=== PATIENT | female | born 1975 | race Caucasian/White ===

== ENCOUNTER → 2022-12-24 13:33 | Outpatient (BNVA) | payer SELFPAY | PROVIDERS: Visit Provider Nurse Practitioner | DX: R69 Illness, unspecified (principal); J01.90 Acute sinusitis, unspecified | CPT/HCPCS: 87400; 87426 ==

== ENCOUNTER 2024-01-25 21:23 | Emergency (ER) | payer SELFPAY ==
[2024-01-25 21:26] VITALS: BP 145/69; PULSE 82; RESP 16; TEMP 36.6; O2SAT 99
--- NOTE | 2024-01-25 21:33 | XRR_ITS ---
PROCEDURE INFORMATION: Exam: XR Lumbosacral Spine Exam date and time: 01/25/2024 9:53 PM Age: 48 years old Clinical indication: Low back pain; Patient HX: Patient says she was driving yesterday and her back hurt some. Then tonight she sneezed and now has pain to the left of l4/l5 TECHNIQUE: Imaging protocol: Radiologic exam of the lumbosacral spine. Views: 2 or 3 views. COMPARISON: No relevant prior studies available. FINDINGS: Bones/joints: Normal. No acute fracture. Normal alignment. Soft tissues: Unremarkable. XR/XR lumbar spine 2-3V* [id number] IMPRESSION: No acute findings.
--- NOTE | 2024-01-25 21:34 | W.ED.BACK ---
Documented by User: [email or web address] Gutierrez 01/25/24 22:31 HPI - Back Pain/Injury General: Chief Complaint: Back Pain/Injury Stated Complaint: Lower back pain Time Seen by Provider: 01/25/24 21:29 Source: patient Mode of arrival: ambulatory Limitations: no limitations History of Present Illness: Patient is a 48-year-old female with no past medical history who reports to the emergency department due to low back pain tonight. Patient states she was at work when she violently sneezed, causing sudden onset of the low back pain. She states the pain is worse to her left paralumbar muscles, but she also has pain on the right. She notes a history of sciatica, however denies any prior back surgeries or traumatic injuries. She denies any bowel or bladder incontinence, saddle anesthesia, distal neurovascular complaints, or any other symptoms at this time. She notes using heating pads, but has gotten minimal relief. Pain has been constant and sharp since the sneeze, but does not radiate. The pain is worse when she stands and is ambulating, and is relieved when she sits down. MD elicited complaint: back pain Onset (ago): hour(s) Timing: constant Severity: severe Similar Symptoms Previously: No Quality: sharp Location: right lower back and left lower back Radiation: none Exacerbating factors: movement and walking Relieving factors: sitting upright Context: other (Sneezed) Associated symptoms: Reports no associated symptoms; Deny abdominal pain, chills, fever(s), nausea or vomiting Treatments prior to arrival: heat therapy Review of Systems General: Reports: 10 or more systems reviewed and unremarkable except in HPI and below Const: Denies: fever(s) or chills Eyes: Denies: change in vision or blurry vision Card: Denies: chest pain, palpitations or lightheadedness Resp: Denies: dyspnea, productive cough or wheezing GI: Reports: other (No bowel incontinence); Denies: abdominal pain, nausea, vomiting or diarrhea : Denies: flank pain or urinary incontinence Musc: Reports: back pain; Denies: neck pain, extremity pain, extremity swelling, joint pain or joint swelling Neuro: Reports: other (No saddle anesthesia); Denies: headache(s), numbness in extremities, weakness in extremities, sensory changes or dizziness Physical Exam Const: COMMON NORMALS: average body habitus, patient oriented x3, no limitations, healthy appearing, alert and well nourished GENERAL APPEARANCE: cooperative and in distress (From pain) ORIENTATION/CONSCIOUSNESS: Yes awake HENMT: COMMON NORMALS: normocephalic, atraumatic, external ears normal and Normal external nose present HEAD & SCALP: normal to inspection, normocephalic and atraumatic FACE & SINUS: normal facial exam NOSE: Normal external nose present EXTERNAL EAR: Yes external ears normal Eye: COMMON NORMALS: EOMs intact bilaterally and conjunctivae normal CONJUNCTIVA: Yes conjunctivae normal Neck/C-Spine: COMMON NORMALS: full ROM Resp: COMMON NORMALS: normal respiratory effort, No retractions, No use of accessory muscles and clear to auscultation bilaterally AUSCULTATION: clear to auscultation bilaterally Cardio: COMMON NORMALS: regular rate, regular rhythm, S1 normal heart sound present and S2 normal heart sound present RATE: regular rate RHYTHM: regular rhythm HEART SOUNDS: S1 normal heart sound present and S2 normal heart sound present : COMMON NORMALS: Yes no CVA tenderness BLADDER/KIDNEY EXAM: Yes no CVA tenderness Back/Pelvis: COMMON NORMALS: no CVA tenderness and thoracic and lumbar spine normal to inspection THORACIC SPINE/UPPER BACK: Yes normal to inspection, Yes ROM limited, Yes pain with ROM, No thoracic spinal tenderness and No paraspinal muscle tenderness LUMBAR SPINE/LOWER BACK: Yes ROM limited, Yes pain with ROM, No lumbar spinal tenderness, Yes paraspinal muscle tenderness Lumbar paraspinal muscle tenderness: bilateral (Left worse than right) and No mass present Extremity: COMMON NORMALS: normal to inspection and full ROM Neuro: COMMON NORMALS: patient oriented x3, moves all extremities, no focal motor deficits, no sensory deficits noted and deep tendon reflexes 2+ bilaterally SENSORIUM/ORIENTATION: Yes alert GAIT: Yes Antalgic gait present MOTOR EXAM: 5/5 motor strength present throughout Psych: COMMON NORMALS: mental status grossly normal Skin: COMMON NORMALS: no rashes or lesions noted and no wounds GENERAL SKIN EXAM: no rashes or lesions noted Course Vital Signs: Vital signs: Vital Signs Temperature 97.9 F 01/25/24 21:26 Pulse Rate 69 01/25/24 22:42 Respiratory Rate 18 01/25/24 22:42 Blood Pressure 102/67 01/25/24 22:42 Pulse Oximetry 98 01/25/24 22:42 Oxygen Delivery Me thod Room Air 01/25/24 21:26 MDM - Back Pain/Injury Medical Decision Making This patient was seen and evaluated in the emergency department due to acute onset of low back pain following a forceful sneeze. Patient has no prior surgical history to her back, though notes a history of sciatica. On arrival patient's vitals normal. Exam remarkable for severe limitation of range of motion at the lumbar spine, due to pain. No red flag symptoms of the back, and deep tendon reflexes intact. X-ray of the lumbar back showed no acute findings. After IM injections of Toradol, Norflex, and Decadron, patient is rechecked and states she feels better. I offered her a note for work, however she states she thinks that she can return as normal. I will give her prescriptions for steroid, muscle relaxer, and pain to take as needed. Also instructed her to follow-up with her primary care provider for any further evaluation. Precautions given, specifically red flag symptoms such as bowel or bladder incontinence or saddle anesthesia. Patient agrees with this plan. Labs Radiology Impressions Lumbar Spine X-Ray 01/25/24 21:33 IMPRESSION: No acute findings. All radiology interpretation(s) finalized by discharge Discharge Plan Discharge Patient Disposition: Home Clinical Impression: Strain of lumbar region Qualifiers: Encounter type: initial encounter Qualified Code(s): S39.012A - Strain of muscle, fascia and tendon of lower back, initial encounter Condition: Stable Prescriptions: New cyclobenzaprine 10 mg tablet 10 mg PO TID Qty: 30 0RF prednisone 20 mg tablet 60 mg PO ONCE 5 Days Qty: 15 0RF ketorolac 10 mg tablet 10 mg PO Q8H PRN (Reason: pain) Qty: 30 0RF No Action methylprednisolone [Medrol (Surjit)] 4 mg tablets,dose pack See Rx Instructions PO PER PKG DIR Qty: 21 0RF Rx Instructions: PO PER PKG DIR Discharge Orders: Discharge ED (Routine); Ordered 01/25/24 Ordered By: Alessio Joseph Discharge Diet: Usual diet Discharge Activity: Increase activity as tolerated Patient Instructions: Low Back Strain (ED), Lower Back Exercises (ED) Activity Restrictions/Additional Instructions: Take medications as prescribed. Gentle range of motion exercises as tolerated. Follow-up with your primary care provider. Return to the emergency department if you develop any bowel or bladder incontinence, numbness in the groin region, or any other concerning symptoms you may have. Coding Level of Care Code ED [employer] for [facility] Grayson Documented by User: Danny Triplett DO 01/26/24 05:51 HPI - Back Pain/Injury General: Chief Complaint: Back Pain/Injury Stated Complaint: Lower back pain Time Seen by Provider: 01/25/24 21:29 Course Vital Signs: Vital signs: Vital Signs Temperature 97.9 F 01/25/24 21:26 Pulse Rate 69 01/25/24 22:42 Respiratory Rate 18 01/25/24 22:42 Blood Pressure 102/67 01/25/24 22:42 Pulse Oximetry 98 01/25/24 22:42 Oxygen Delivery Me thod Room Air 01/25/24 21:26 MDM - Back Pain/Injury Medical Decision Making This patient was seen and evaluated in the emergency department due to acute onset of low back pain following a forceful sneeze. Patient has no prior surgical history to her back, though notes a history of sciatica. On arrival patient's vitals normal. Exam remarkable for severe limitation of range of motion at the lumbar spine, due to pain. No red flag symptoms of the back, and deep tendon reflexes intact. X-ray of the lumbar back showed no acute findings. After IM injections of Toradol, Norflex, and Decadron, patient is rechecked and states she feels better. I offered her a note for work, however she states she thinks that she can return as normal. I will give her prescriptions for steroid, muscle relaxer, and pain to take as needed. Also instructed her to follow-up with her primary care provider for any further evaluation. Precautions given, specifically red flag symptoms such as bowel or bladder incontinence or saddle anesthesia. Patient agrees with this plan. Chart reviewed Labs Radiology Impressions Lumbar Spine X-Ray 01/25/24 21:33 IMPRESSION: No acute findings. Discharge Plan Discharge Patient Disposition: Home Clinical Impression: Strain of lumbar region Qualifiers: Encounter type: initial encounter Qualified Code(s): S39.012A - Strain of muscle, fascia and tendon of lower back, initial encounter Condition: Stable Prescriptions: New cyclobenzaprine 10 mg tablet 10 mg PO TID Qty: 30 0RF prednisone 20 mg tablet 60 mg PO ONCE 5 Days Qty: 15 0RF ketorolac 10 mg tablet 10 mg PO Q8H PRN (Reason: pain) Qty: 30 0RF No Action methylprednisolone [Medrol (Surjit)] 4 mg tablets,dose pack See Rx Instructions PO PER PKG DIR Qty: 21 0RF Rx Instructions: PO PER PKG DIR Discharge Orders: Discharge ED (Routine); Ordered 01/25/24 Ordered By: Alessio Joseph Discharge Diet: Usual diet Discharge Activity: Increase activity as tolerated Patient Instructions: Low Back Strain (ED), Lower Back Exercises (ED) Activity Restrictions/Additional Instructions: Take medications as prescribed. Gentle range of motion exercises as tolerated. Follow-up with your primary care provider. Return to the emergency department if you develop any bowel or bladder incontinence, numbness in the groin region, or any other concerning symptoms you may have. Coding Level of Care Code ED [employer] Operator for [facility]zy Grayson
[2024-01-25] MEDS: orphenadrine 30 mg/mL Inj 2 mL 60 MG IM (21:42)
[2024-01-25] MEDS: ketorolac 60 mg/2 mL INJ IM (21:42)
[2024-01-25] MEDS: dexamethasone 10 mg/mL INJ 8 MG IM (21:43)
[2024-01-25 22:42] VITALS: BP 102/67; PULSE 69; RESP 18; O2SAT 98
== END 2024-01-25 22:44 | disposition home or self-care (01) ==
PROVIDERS: Emergency Provider Physician Assistant
DX: S39.012A Strain of muscle, fascia and tendon of lower back, initial encounter (principal); X50.9XXA Other and unspecified overexertion or strenuous movements or postures, initial encounter
CPT/HCPCS: 72100; 96372; 99284; J1100; J1885; J2360